=== PATIENT | male | born 1970 | race Caucasian/White ===

== ENCOUNTER → 2017-06-21 | Outpatient (CLI) | payer OTHER | END | disposition disaster alternative care site (69) | LOC: GRAD 07:35 | DX: M25.562 Pain in left knee (principal); M25.462 Effusion, left knee; M23.242 Derangement of anterior horn of lateral meniscus due to old tear or injury, left knee; M71.22 Synovial cyst of popliteal space [Baker], left knee; R60.0 Localized edema ==